=== PATIENT | female | born 1965 | race Caucasian/White ===

== ENCOUNTER → 2017-04-03 | Outpatient (CLI) | payer OTHER ==
[~2017-04-03] MED LIST: ANTIVERT25 MG PO; ESTROVEN ENERG1 EACH PO; IBUPROFEN 200200 M1 PO; LAMISIL250 MG PO; LISINOPRIL20 MG PO; MELATONIN1 MG PO; MOBIC15 MG PO; PHENERGAN 25 MG25 M1 PO; PHENERGAN12.5 M2 RECTAL; ULTRAM 50MG TAB50 MG PO; VITAMIN D3400 UNIT PO; XANAX 0.5 MG0.5 MG PO; ZANAFLEX4 MG PO
== END ==
LOC: RAD 13:25
DX: Z12.31 Encounter for screening mammogram for malignant neoplasm of breast (principal)

== ENCOUNTER → 2018-05-27 | Outpatient (CLI) | payer OTHER | LOC: BC 03:18 | DX: Z12.31 Encounter for screening mammogram for malignant neoplasm of breast (principal); N91.2 Amenorrhea, unspecified; I10 Essential (primary) hypertension; Z78.0 Asymptomatic menopausal state; Z87.891 Personal history of nicotine dependence ==

== ENCOUNTER → 2019-07-18 | Outpatient (CLI) | payer OTHER | LOC: RAD 13:55 | DX: Z12.31 Encounter for screening mammogram for malignant neoplasm of breast (principal) ==

== ENCOUNTER → 2020-09-20 | Outpatient (CLI) | payer OTHER | LOC: RAD 15:34 | PROVIDERS: ATTEND Family Medicine | DX: Z12.31 Encounter for screening mammogram for malignant neoplasm of breast (principal) ==